=== PATIENT | female | born 1960 | race Two or more races ===

== ENCOUNTER 2020-04-25 12:33 | Emergency (ER) | payer SELFPAY ==
--- NOTE | 2020-04-25 13:27 | ER Document Report ---
ED Medical Screen (RME) - General Chief Complaint: Chest Pain Stated Complaint: CHEST PAIN Time Seen by Provider: 04/25/20 13:23 Notes: HPI: 59-year-old female with history of reflux disorder presenting for 3 days of intermittent tightness in the midsternal chest region and occasional shortness of breath. Symptoms may last for several minutes at a time. States she has had this looked at before and they thought it might be reflux. She states it feels different from her normal reflux. PHYSICAL EXAMINATION: Lung sounds are clear to auscultation regular rate and rhythm EKG normal sinus rhythm without ectopy. I have greeted and performed a rapid initial assessment of this patient. A comprehensive ED assessment and evaluation of the patient, analysis of test results and completion of medical decision making process will be conducted by an additional ED providers. Please note that clinical decision making for this patient was made during the 2019 pandemic of novel coronavirus which caused a significant strain on the healthcare system including at this particular facility. Criteria for admission discharge and level of care decisions as well as treatment decisions have necessarily changed - Related Data Allergies/Adverse Reactions: No Known Allergies Allergy (Verified 04/25/20 13:21) Physical Exam - Vital signs Vitals: Temp Pulse Resp BP Pulse Ox 98.1 F 102 H 18 144/70 H 100 04/25/20 12:43 04/25/20 12:43 04/25/20 12:43 04/25/20 12:43 04/25/20 12:43 Course - Vital Signs Vital signs: Temp Pulse Resp BP Pulse Ox 98.1 F 102 H 18 144/70 H 100 04/25/20 12:43 04/25/20 12:43 04/25/20 12:43 04/25/20 12:43 04/25/20 12:43
--- NOTE | 2020-04-25 14:06 | RADIOLOGY REPORT (SQ) ---
EXAM DESCRIPTION: CHEST SINGLE VIEW IMAGES COMPLETED DATE/TIME: 04/25/2020 1:49 pm REASON FOR STUDY: chest pain COMPARISON: None. EXAM PARAMETERS: NUMBER OF VIEWS: One view. TECHNIQUE: Single frontal radiographic view of the chest acquired. RADIATION DOSE: NA LIMITATIONS: Artifact from [facility] FINDINGS: LUNGS AND PLEURA: No opacities, masses or pneumothorax. No pleural effusion. MEDIASTINUM AND HILAR STRUCTURES: No masses. Contour normal. HEART AND VASCULAR STRUCTURES: Heart normal in size. Normal vasculature. BONES: No acute findings. HARDWARE: None in the chest. OTHER: No other significant finding. IMPRESSION: NO ACUTE RADIOGRAPHIC FINDING IN THE CHEST. TECHNICAL DOCUMENTATION: JOB ID: [id number] 2010 [employer]- All Rights Reserved Reading location - IP/workstation name: [id number]
[2020-04-25 14:16] LABS: ABSOLUTE LYMPHOCYTES (AUTO) 2.4 10^3/uL (0.5-4.7); ABSOLUTE MONOCYTES (AUTO) 0.3 10^3/uL (0.1-1.4); ABSOLUTE NEUT (AUTO) 4.2 10^3/uL (1.7-8.2); BASOPHILS % (AUTO) 0.7 % (0-2); EOSINOPHILS % (AUTO) 0.5 % (0-6); HEMATOCRIT 35.4 % (36.0-47.0); HEMOGLOBIN 11.7 g/dL (12.0-15.5); LYMPHOCYTES % (AUTO) 34.6 % (13-45); MEAN CORPUSCULAR HEMOGLOBIN 27.4 pg (27.0-33.4); MEAN CORPUSCULAR VOLUME 83 fl (80-97); MONOCYTES % (AUTO) 4.1 % (3-13); PLATELET COUNT 224 10^3/uL (150-450); RED BLOOD COUNT 4.26 10^6/uL (3.72-5.28); RED CELL DISTRIBUTION WIDTH 15.1 % (11.5-14.0); SEGMENTED NEUTROPHILS % (AUTO) 60.1 % (42-78); TOTAL CELLS COUNTED % (AUTO) 100 %
[2020-04-25 14:22] LABS: ALBUMIN 4.5 g/dL (3.5-5.0); ALKALINE PHOSPHATASE 53 U/L (38-126); ASPARTATE AMINO TRANSFERASE 26 U/L (14-36); BILIRUBIN,DIRECT 0.1 mg/dL (0.0-0.4); BILIRUBIN,TOTAL 0.4 mg/dL (0.2-1.3); BLOOD UREA NITROGEN 16 mg/dL (7-20); CALCIUM 9.9 mg/dL (8.4-10.2); CARBON DIOXIDE 32 mmol/L (22-30); CHLORIDE 105 mmol/L (98-107); GLUCOSE 99 mg/dL (75-110); POTASSIUM 4.5 mmol/L (3.6-5.0)
[2020-04-25 14:27] LABS: ANION GAP 4 (5-19)
--- NOTE | 2020-04-25 15:50 | ER Document Report ---
ED General - General Chief Complaint: Chest Pain Stated Complaint: CHEST PAIN Time Seen by Provider: 04/25/20 13:23 - HPI Notes: Patient is a 59-year-old female presents the emergency department for evaluation of intermittent chest pain. Is been going on for the last several days. She states this seems to be improved somewhat by food. Back in December she had a breath test and was tested positive for H. pylori. She started the clarithromycin treatment, but stopped it to have a colonoscopy. She never started it again. She denies any melena hematochezia. She describes a tightness and a burning in her chest. She states it is similar to her indigestion in the past but seems worse, more intense. She denies any assoc iated nausea, diaphoresis, dizziness, palpitations, near syncope. - Related Data Allergies/Adverse Reactions: No Known Allergies Allergy (Verified 04/25/20 13:21) Past Medical History - General Information source: Patient - Social History Smoking Status: Never Smoker Drug Abuse: None Family History: DM, Hypertension GI Medical History: Reports: Hx Gastroesophageal Reflux Disease Past Surgical History: Reports: Hx Hysterectomy Review of Systems - Review of Systems Constitutional: No symptoms reported EENT: No symptoms reported Cardiovascular: See HPI Respiratory: No symptoms reported Gastrointestinal: See HPI Genitourinary: No symptoms reported Musculoskeletal: No symptoms reported Skin: No symptoms reported Neurological/Psychological: No symptoms reported -: Yes All other systems reviewed and negative Physical Exam - Vital signs Vitals: Temp Pulse Resp BP Pulse Ox 98.1 F 102 H 18 144/70 H 100 04/25/20 12:43 04/25/20 12:43 04/25/20 12:43 04/25/20 12:43 04/25/20 12:43 - Notes Notes: Vital signs reviewed, please refer to chart. Head is normocephalic, atraumatic. Pupils equal round, reactive to light. Neck is supple without meningismus. Heart is regular rate and rhythm. Lungs are clear to auscultation bilaterally. Abdomen is soft, nontender, normoactive bowel sounds throughout. Extremities without cyanosis, clubbing. Posterior calves are nontender. Peripheral pulses are equal. Skin is warm and dry. Patient is awake, alert, neurological exam is nonfocal. Course - Re-evaluation Re-evalutation: 04/25/20 15:46 Patient presents to the emergency department for evaluation of chest pain. It seems more consistent with indigestion. She was initially seen through triage and had laboratory investigations, imaging, EKG performed. No significant abnormality was identified. She is chest pain-free at this time. She has had similar pain in the past it was related to indigestion. The patient has incompletely treated H. pylori, does not have a primary care provider in this area. I will get head and restart her on prevpac to treat for H. pylori. I have also recommended that the patient start taking Pepcid daily as a more pre ventative measure. Patient and her daughter are reaching out to have GI follow- up, unfortunately I do not have a crop and soil scientist transportation attendant at this time. They are amenable to this plan. She is return to the emergency department with worsening or new concerning symptoms of any sort. - Vital Signs Vital signs: Temp Pulse Resp BP Pulse Ox 98.1 F 102 H 18 144/70 H 100 04/25/20 12:43 04/25/20 12:43 04/25/20 12:43 04/25/20 12:43 04/25/20 12:43 - Laboratory Results Result Diagrams: 04/25/20 13:40 04/25/20 13:40 Laboratory Results Interpreted: 04/25/20 04/25/20 13:40 13:40 Hgb 11.7 L Hct 35.4 L RDW 15.1 H Carbon Dioxide 32 H Anion Gap 4 L Critical Laboratory Results Reviewed: No Critical Results - Radiology Results Radiology Results Interpreted: 04/25/20 15:48 Chest X-Ray 04/25/20 13:35 IMPRESSION: NO ACUTE RADIOGRAPHIC FINDING IN THE CHEST. Critical Radiology Results Reviewed: No Critical Results - EKG Interpretation by Me Additional EKG results interpreted by me: 04/25/20 15:48 Sinus mechanism with a rate of 95 bpm. Normal axis and intervals. No acute ST changes concerning for ischemia or infarction. No old studies available for comparison. Discharge - Discharge Clinical Impression: Chest pain Qualifiers: Chest pain type: unspecified Qualified Code(s): R07.9 - Chest pain, unspecified Acid reflux disease Qualifiers: Esophagitis bleeding: without hemorrhage Condition: Stable Disposition: HOME, SELF-CARE Instructions: Reflux Disease (GERD) ([facility]) Additional Instructions: Avoid spicy and acidic foods. Avoid caffeine, nicotine, alcohol. Take [id number] Pepcid daily as directed. You should seek out referral to a crop and soil scientist. Take all the medication as prescribed. Return to the emergency department with worsening or new concerning symptoms of any sort.
[2020-04-25 16:26] VITALS: BP 122/80
--- NOTE | 2020-04-26 20:33 | EKG REPORT ---
SEVERITY:- BORDERLINE ECG - SINUS RHYTHM PROMINENT P WAVES, NONDIAGNOSTIC : Confirmed by: Brenda Benson MD 26-Apr-2020 20:32:58
== END 2020-04-25 16:26 | disposition home or self-care (01) ==
LOC: ER 12:33
DX: K21.9 Gastro-esophageal reflux disease without esophagitis (principal); R07.89 Other chest pain; A04.8 Other specified bacterial intestinal infections; T36.3X6A Underdosing of macrolides, initial encounter; Z91.128 Patient's intentional underdosing of medication regimen for other reason; Z91.14 Patient's other noncompliance with medication regimen
CPT/HCPCS: 36415; 71045; 80053; 84484; 85025; 93005; 93010; 99285